=== PATIENT | female | born 1940 | race Caucasian/White ===

== ENCOUNTER → 2016-08-02 | Day surgery (SDC) | payer MEDICARE, BC ==
[~2016-08-02] VITALS: Ht 162.6 cm; Wt 95.3 kg
[~2016-08-02] MED LIST: ACET-704 PO; ALBUTEROL SULFATE 2.5 MG/3 ML NEBU. NEB ONE; ALBUTEROL SULFATE 2.5 MG/3 ML NEBU. ONE; ALPR0.25 PO; AMLO5TAB2 PO; BUPR150T8 PO; CELE200C PO; CIPR250T30 PO; CIPR500T94 PO; DEXAMETHASONE SOD PHOS 20 MG/5 ML VIAL. ONE; DICL100T PO; FERR325T58 PO; HYDROmorphone 2 MG/ML VIAL IV PRN; IV RINGERS,LACTATED 1000ML 1,000 ML IV SCH; LIDOCAINE 1% 1 ML SYRINGE. ID PRN; LIDOCAINE 2% PF Vial for OR 5 ML VIAL. ONE; LISI40TA PO; MIRA50TA PO; MORPHINE SULFATE 2 MG/ML DISP.SYRIN. IV PRN; ONDANSETRON PF 4 MG/2 ML VIAL. IV PRN; ONDANSETRON PF 4 MG/2 ML VIAL. ONE; OXYC-323 PO; PROCHLORPERAZINE 10 MG/2 ML VIAL. IV PRN; PROPOFOL 20 ML IV ONE; SCOPOLAMINE 1.5MG PATCH. TD ONE; TRAM50TA PO; WARF3TAB54 PO; fentaNYL PF VIAL 100 MCG/2 ML VIAL IV PRN
[2016-08-02 12:51] LABS: BILIRUBIN,URINE NEGATIVE (NEG); GLUCOSE,URINE NEGATIVE (NEG); NITRITE,URINE NEGATIVE (NEG); PH,URINE 6.5; PROTEIN,URINE NEGATIVE (NEG-TRACE); UROBILINOGEN,URINE 0.2 mg/dL (0.2 mg/dL)
[2016-08-02 12:54] LABS: BASO # 0.1 x10^3/uL (0.0-0.2); BASO % 1 % (0-3); EOS % 2 % (0-3); HEMATOCRIT 44.2 % (36.0-47.0); HEMOGLOBIN 14.6 g/dL (12.0-15.5); LYMPH # 2.7 x10^3/uL (1.0-4.8); LYMPH % 26 % (24-48); MEAN CORPUSCULAR HEMOGLOBIN 29 pg (25-35); MEAN CORPUSCULAR HGB CONC 33 g/dL (31-37); MEAN CORPUSCULAR VOLUME 89 fL (79-100); MONO % 9 % (0-9); NEUT % 61 % (31-73); PLATELET COUNT 327 x10^3/uL (140-400); RED BLOOD COUNT 4.96 x10^6/uL (3.50-5.40); RED CELL DISTRIBUTION WIDTH 13.6 % (11.5-14.5); WHITE BLOOD COUNT 10.1 x10^3/uL (4.0-11.0)
[2016-08-02 12:55] LABS: CALCIUM 9.1 mg/dL (8.5-10.1); CREATININE 0.8 mg/dL (0.6-1.0); GFR 70.3; POTASSIUM 4.8 mmol/L (3.5-5.1)
[2016-08-02 13:01] LABS: BACTERIA,URINE 0 /HPF (0-FEW); RBC,URINE 0 /HPF (0-2); SQUAMOUS EPITHELIAL CELL,UR MOD /LPF
--- NOTE | 2016-08-02 14:52 | PDOC ---
BRIEF OPERATIVE NOTE Date: August 02, 2016 Pre-Op Diagnosis Urinary Incontinence Post-Op Diagnosis same Procedure Performed Cystoscopy transurethral injection CoAptite (3) Surgeon Terrance Anesthesia Type: General Blood Loss None Specimens Obtained None Findings same Complications None Additional Remarks tolerated well MAYITO MCALLISTER DO August 02, 2016 14:52
--- NOTE | 2016-08-02 14:53 | DISCH ---
DISCHARGE INSTRUCTIONS Condition on Discharge Condition on Discharge: Stable Activity After Discharge Activity Instructions for Disc: Resume previous activity Driving Instructions after Dis: Do not drive today Diet after Discharge Diet after Discharge: Regular Contacting the DR. after DC Call your doctor for: Concerns you may have Follow-Up Follow up with: 2 weeks MAYITO MCALLISTER DO August 02, 2016 14:53
[2016-08-02 15:44] VITALS: BP 138/57
--- NOTE | 2016-08-02 20:05 | OP ---
DATE OF SURGERY: 08/02/2016 PREOPERATIVE DIAGNOSES: Urinary incontinence, intrinsic sphincter deficiency. POSTOPERATIVE DIAGNOSES: Urinary incontinence, intrinsic sphincter deficiency. PROCEDURE: Cystoscopy, transurethral injection of coaptite injection (3 syringes). SURGEON: Mayito Mcallister DO. ANESTHESIA: General. INDICATIONS AND JUDGMENT: A 75-year-old obese female with a history of urinary incontinence and intrinsic sphincter deficiency. It was felt that she would benefit from coaptite injections to strengthen her sphincter mechanism. The procedure was explained to the patient, she appeared to understand and was agreeable. DESCRIPTION OF PROCEDURE: The patient was given 500 mg of IV Levaquin preop. She was taken to the operating room and placed on the operating room table, given a general anesthetic and then placed in a dorsolithotomy position using Raul stirrups. She was prepped and draped in sterile fashion. Rigid cystoscopy was performed. Urethra was normal in appearance. The bladder was normal in appearance. The coaptite injection needle was fitted with syringe of coaptite, this was passed through the working channel of the rigid cystoscope and then the needle was passed submucosally at the ureterovesical junction and 1 syringe of coaptite was injected into the mucosa came to the midline. The injection area was then fitted with the second coaptite needle. Attention was directed to the opposite side, the patient's left side. The injection needle was passed submucosally at the bladder neck and coaptite was injected once again making a bleb that came to the midline. A third syringe of the coaptite was then fitted to the injection needle and additional coaptite was injected submucosally at the bladder neck on the left side and the right side. This caused good coaptation at the bladder neck. The cystoscope and needle was removed. The patient tolerated the procedure well and was sent to recovery room in satisfactory condition. Plans will be to send the patient home with a prescription of Cipro 500 mg p.o. b.i.d. for 5 days. She will follow up in the office and given followup on her incontinence. MAYITO MCALLISTER DO DR: ROOPA/aguilar JOB#: [id number] / [id number]
== END | disposition home or self-care (01) ==
LOC: SURG 12:05
PROVIDERS: ATTEND Urology
DX: N36.42 Intrinsic sphincter deficiency (ISD) (principal); I10 Essential (primary) hypertension; F41.9 Anxiety disorder, unspecified; M19.90 Unspecified osteoarthritis, unspecified site; Z98.41 Cataract extraction status, right eye; Z98.42 Cataract extraction status, left eye; Z90.49 Acquired absence of other specified parts of digestive tract; Z96.651 Presence of right artificial knee joint; Z96.642 Presence of left artificial hip joint; Z96.641 Presence of right artificial hip joint
CPT/HCPCS: 36415; 52287; 80048; 81001; 85027; J1100; J1956; J2405; J2704; L8606

== ENCOUNTER → 2019-11-25 | Outpatient (CLI) | payer MEDICARE, BC ==
[2016-08-02 15:44] VITALS: BP 138/57
[~2019-11-25] MED LIST changes: -ALBUTEROL SULFATE 2.5 MG/3 ML NEBU. NEB ONE; -ALBUTEROL SULFATE 2.5 MG/3 ML NEBU. ONE; +AMLO5TAB10 PO; -AMLO5TAB2 PO; -DEXAMETHASONE SOD PHOS 20 MG/5 ML VIAL. ONE; -HYDROmorphone 2 MG/ML VIAL IV PRN; +IOHEXOL 180 MG/ML 10 ML VIAL. ONE; -IV RINGERS,LACTATED 1000ML 1,000 ML IV SCH; -LIDOCAINE 1% 1 ML SYRINGE. ID PRN; -LIDOCAINE 2% PF Vial for OR 5 ML VIAL. ONE; +LISI-130 PO; -LISI40TA PO; -MORPHINE SULFATE 2 MG/ML DISP.SYRIN. IV PRN; -ONDANSETRON PF 4 MG/2 ML VIAL. IV PRN; -ONDANSETRON PF 4 MG/2 ML VIAL. ONE; +OXYB5TAB10 PO; -OXYC-323 PO; +OXYC1TAB15 PO; -PROCHLORPERAZINE 10 MG/2 ML VIAL. IV PRN; -PROPOFOL 20 ML IV ONE; -SCOPOLAMINE 1.5MG PATCH. TD ONE; -fentaNYL PF VIAL 100 MCG/2 ML VIAL IV PRN; +methylPREDNISolone ACETATE 40 MG/ML VIAL. ONE; +methylPREDNISolone ACETATE 80 MG/ML VIAL. ONE
--- NOTE | 2019-11-25 12:11 | PDOC2 ---
INITIAL PAIN CONSULT DATE OF SERVICE: DOS: DATE: 11/25/19 TIME: 12:01 CHIEF COMPLAINT: Chief Complaint: Low back and right lower extremity pain HISTORY OF PRESENT ILLNESS: 39-year-old female presents with history of pain low back right lower extremity for about 2 years or so not the result of any specific injury or accident that she is aware of. Patient reports pain is getting worse with time walking standing changing positions better with sitting or laying down but is waking her from sleep about once or twice a night patient reports does not affect her bowel bladder control does affect ability to walk she felt fatigability the right leg significantly after about 5 to 10 minutes when she can stop and rest and in the process repeats. Patient reports pain is much better with sitting or laying down. Patient reports pain is becoming more constant in the low back describing as intermittent radiating stabbing throbbing shooting and aching in the back itself. Patient reports the pain travels into the left posterior gluteus posterior thigh posterior calf into the foot and the sole of the foot and the heel. Patient reports no symptoms on the left side. Patient rates her disability rating 0-10 10 being the worst is an 8 with family home responsibilities 9 with social activity 10 with recreation and occupational activities and 0 with self-care life support activities. Patient is tried Tylenol 3 with codeine which decreased the pain most recently took that this morning also has had physical therapy for her hip in the past and also some epidural injections about 2 years ago which were helpful as well. PAST MEDICAL HISTORY: PMH: Hearing loss, hypertension, arthritis PREVIOUS SURGERIES: Past Surgical Hx: Right knee replacement 2014, left hip replacement 2009, left hip replacement 2018, bilateral cataract extractions CURRENT MEDICATIONS: Current Meds: Active Scripts Medications Dose Route/Sig Max Daily Dose Days Date Category Dose Instructions Oxybutynin Chloride 5 Mg Tablet 5 Mg PO BID 11/25/19 Reported Wellbutrin Sr (Bupropion Hcl) 150 Mg Tablet.er 150 Mg PO DAILY 08/02/16 Reported Tylenol With Codeine #3 Tablet (Acetaminophen/Codeine Phosphate) 1 Each Tablet 1 Tab PO PRN Q6HRS PRN 08/01/16 Reported Xanax (Alprazolam) 0.25 Mg Tablet 0.25 Mg PO PRN Q6HRS PRN 08/01/16 Reported Lisinopril 40 Mg Tablet 40 Mg PO DAILY 10/07/14 Reported LAST DOSE GIVEN: DATE:11-05-14 TIME:8:30 a.m. NEXT DOSE DUE: DATE:11-06-14 TIME:8:30 a.m. Amlodipine Besylate 5 Mg Tablet 5 Mg PO DAILY 10/07/14 Reported LAST DOSE GIVEN: DATE:11-05-14 TIME:8:30 a.m. NEXT DOSE DUE: DATE:11-06-14 TIME:8:30 a.m. Celebrex (Celecoxib) 200 Mg Capsule 200 Mg PO DAILY 10/07/14 Reported LAST DOSE GIVEN: DATE:11-05-14 TIME:8:30 a.m. NEXT DOSE DUE: DATE:11-06-14 TIME:8:30 a.m. ALLERGIES; Allergies: Coded Allergies: cephalexin (Verified Allergy, Severe, Hives, 08/02/16) gabapentin (Verified Allergy, Intermediate, Itching, 11/25/19) sulfamethoxazole (Verified Allergy, Intermediate, dizziness, tolerates Celebrex with no problems, 08/02/16) trimethoprim (Verified Allergy, Intermediate, dizziness, 08/02/16) FAMILY HISTORY: Family Hx: No major medical problems or conditions that she is aware of SOCIAL HISTORY: Social Hx: Patient does not drink does not smoke does not use any illegal illicit or recrea tional drugs is lives locally in [facility] and is currently retired REVIEW OF SYSTEMS: ROS: Positive for those items mentioned in history of present illness all systems are reviewed otherwise negative is complete full and well-documented on patient's chart PHYSICAL EXAM: VS: Blood pressure is 157/79 pulse 77 respirations 18 temperature 98.2 F height is 5 feet 4 inches weight is 220 pounds PE: PHYSICAL EXAMINATION: GENERAL: The patient is awake, alert, oriented, appropriate, very pleasant demeanor HEENT: Shows normocephalic, atraumatic. Extraocular movements are intact and symmetrical. Oral cavity: Mucous membranes moist and pink. Dentition is intact . NECK: Shows anterior throat supple without palpable lymphadenopathy noted. Swallow reflex symmetrical. CHEST: Shows normal on inspection. Breath sounds are clear bilaterally, no rales rhonchi or wheezes auscultated. HEART: Shows S1, S2 clear. No murmurs auscultated. ABDOMEN: Soft, nontender, nondistended, obese. No palpable organomegaly is noted. No rebound or guarding demonstrated. BACK: Shows spine grossly in the midline. Normal-appearing cervical lordotic curvature. There is slightly increased thoracic kyphosis, some minor flattening of the lumbar lordotic curvature. Lumbar paraspinous muscles show symmetrical on inspection, on palpation shows some moderate tenderness diffusely throughout the upper, middle and lower distribution of the paraspinous muscles bilaterally, but without specific trigger points, without radiation of pain. The patient has good rotational motion of the lumbar spine, both laterally as well as extension and flexion without significant difficulty. No tenderness over the spinous processes, sacrum or sacroiliac regions. EXTREMITIES: Lower extremities show deep tendon reflexes 1+ in the patellar and tendo calcaneus tendons. Motor exam is 4 on a scale of 5 with right dorsiflexion, extension, quadriceps and hamstring flexion and 5/5 on the left. Peripheral pulses are 1+ posterior tibial. No peripheral edema is noted bilaterally. Lower extremities are warm and dry to touch, equal in color and appearance. Straight leg raise noted to be positive on the right about 40 degrees, left side is negative. Gaenslen's and Ronald's maneuvers are negative as well. The patient is able to stand, stand on her toes without significant difficulty or loss of balance walks with a slightly favoring gait favors the right lower extremity but is not using any assistive devices such as canes or walkers to ambulate. SKIN: Shows warm and dry, good turgor. No edema. No sores, rashes or bruising throughout. IMPRESSION: Impression: This is a 79-year-old female with approximate 2-year history increasing pain low back and right lower extremity radicular fashion. MRI scan lumbar spine as noted with severe degenerative loss of disc space height L2-3 L3-4 L4-5 L5-S1 with disc bulges and ligamentous and facet hypertrophic degenerative changes causing spinal stenosis at multiple levels particularly L4-5. Hypertension Arthritis Plan: Options were discussed with the patient including conservative medical management physical therapies interventional techniques that she like to pursue interventional techniques we discussed a lumbar epidural steroid injection using description as well as anatomical models to describe the procedure. Risks were discussed including but not limited to: Bleeding, infection, possibility of epidural hematoma and subsequent neurological compromise, dural puncture, headaches, spinal cord and/or nerve damage, side effects of steroid medication, and poor results regarding pain control. Patient understands wished to proceed. Patient return to clinic in approximate 2 weeks for follow-up was counseled as to return appointment activity level and side effects to be aware of. Procedure is lumbar epidural steroid injection under local anesthetic using sterile prep and drape at the L5 -S1 level using C-arm fluoroscopic guidance in both AP and lateral views medications injected is 120 mg Depo-Medrol + 10 mL preservative-free normal saline and 2 mL contrast- condition at discharge is stable patient tolerated procedure well had no complications. GUERO BERMUDEZ MD Nov 25, 2019 12:11
== END | disposition home or self-care (01) ==
LOC: PNCL 10:44
PROVIDERS: ATTEND Anesthesiology
DX: M48.061 Spinal stenosis, lumbar region without neurogenic claudication (principal); M51.36 Other intervertebral disc degeneration, lumbar region; M79.661 Pain in right lower leg; I10 Essential (primary) hypertension; M19.90 Unspecified osteoarthritis, unspecified site; Z98.890 Other specified postprocedural states; Z96.651 Presence of right artificial knee joint; Z96.642 Presence of left artificial hip joint; Z87.891 Personal history of nicotine dependence; Z88.8 Allergy status to other drugs, medicaments and biological substances; Z79.899 Other long term (current) drug therapy
CPT/HCPCS: 62323; J1030; J1040; Q9965

== ENCOUNTER → 2019-12-23 | Outpatient (CLI) | payer MEDICARE, BC ==
[2016-08-02 15:44] VITALS: BP 138/57
[~2019-12-23] MED LIST changes: +AMLO-186 PO; -AMLO5TAB10 PO
--- NOTE | 2019-12-23 11:24 | PDOC ---
Progress Note - Pain Clinic Date of Service: DOS: DATE: 12/23/19 TIME: 11:20 Diagnosis: Dx: Lumbar radiculopathy with lumbar degenerative disc disease and lumbar spinal stenosis History or Present Illness: HPI: 79-year-old female returns follow-up status post lumbar epidural steroid injection x1. Patient with 50% improvement after her last injection with pain returning to some extent in the low back right lower extremity posterior gluteus posterior thigh posterior calf patient which is much better it was just increased activity distance walking doing household activities much greater ease and comfort working activities try with greater ease still sleeping well at night does not awaken her from sleep patient reports pain is an 8 on scale 10 is worse over the past week 6 on average 3 displeasing is a 6 today patient which is stabbing and aching in the back radiating posterior gluteus posterior thigh calf is noted more on the right side. Patient reports no new motor or sensory deficits no new bowel or bladder con's or other complaints. Physical Exam: VS: Pressure is 152/89 pulse 76 respirations 18 temperature 98.1 F height 5 feet forges weight is 216lbs. PE: PHYSICAL EXAMINATION: GENERAL: The patient is awake, alert, oriented, appropriate, very pleasant demeanor HEENT: Shows normocephalic, atraumatic. Extraocular movements are intact and symmetrical. NECK: Shows anterior throat supple without palpable lymphadenopathy noted. Swallow reflex symmetrical. CHEST: Shows normal on inspection. Breath sounds are clear bilaterally. HEART: Shows S1, S2 clear. No murmurs auscultated. ABDOMEN: Soft, nontender, nondistended, obese. No palpable organomegaly is noted. No rebound or guarding demonstrated. BACK: Shows spine grossly in the midline. Normal-appearing cervical lordotic curvature. There is slightly increased thoracic kyphosis, some minor flattening of the lumbar lordotic curvature. Lumbar paraspinous muscles show symmetrical on inspection, on palpation shows some moderate tenderness diffusely throughout the upper, middle and lower distribution of the paraspinous muscles bilaterally, without specific trigger points, without radiation of pain. The patient has good rotational motion of the lumbar spine, both laterally as well as extension and flexion without significant difficulty. No tenderness over the spinous processes, sacrum or sacroiliac regions. EXTREMITIES: Lower extremities show deep tendon reflexes 1+ in the patellar and tendo calcaneus tendons. Motor exam is 4 on a scale of 5 with right dorsiflexion, extension, quadriceps and hamstring flexion and 5/5 on the left. Peripheral pulses are 1+ posterior tibial. No peripheral edema is noted bilaterally. Lower extremities are warm and dry to touch. SKIN: Shows warm and dry, good turgor. No edema. No sores, rashes or bruising throughout. Procedure: Procedure: Options were discussed with the patient. Patient will chart reviews her current medication regimen updated current review of systems updated today as well. We will proceed with a second in the series lumbar epidural steroid injection today with fluoroscopic guidance. Risks were discussed including but not limited to: Bleeding, infection, possibility of epidural hematoma and subsequent neurological compromise, dural puncture, headaches, spinal cord and/or nerve damage, side effects of steroid medication, and poor results regarding pain control. Patient understands wished to proceed. Patient will return to clinic in approximately 2 weeks for follow-up was counseled as return appointment activity level and side effects to be aware of. Medication Injected: Med Injected: Procedure is lumbar epidural steroid injection under local anesthetic using sterile prep and drape at the L5-S1 level using C-arm fluoroscopic guidance in both AP and lateral views medications injected is 120 mg Depo-Medrol + 10 mL preservative-free normal saline and 2 mL contrast- condition at discharge is stable patient tolerated procedure well had no complications. Condition at Discharge: Condition at Discharge: Condition at discharge is stable patient tolerated procedure well had no complications. GUERO BERMUDEZ MD Dec 23, 2019 11:24
== END ==
LOC: PNCL 10:49
PROVIDERS: ATTEND Anesthesiology
DX: M51.16 Intervertebral disc disorders with radiculopathy, lumbar region (principal); M48.061 Spinal stenosis, lumbar region without neurogenic claudication; I10 Essential (primary) hypertension; Z88.8 Allergy status to other drugs, medicaments and biological substances; Z87.891 Personal history of nicotine dependence; Z79.899 Other long term (current) drug therapy
CPT/HCPCS: 62323; J1030; J1040; Q9965